=== PATIENT | male | born 1975 ===

== ENCOUNTER 2017-03-24 18:36 | Emergency (ER) | payer OTHER ==
[2017-03-24 18:44] VITALS: BP 151/98; PULSE 72; RESP 18; TEMP 98.3; O2SAT 100
[2017-03-24] MEDS ORDERED: Tetanus/Diphtheria Toxoids 0.5 ml Syringe IM ONE ×2 (19:25→19:40)
--- NOTE | 2017-03-24 19:26 | C.PDOC ---
History Of Present Illness 41 yr old male presents to the ER for evaluation of left lower leg laceration sustained early today while at work. Patient reports a piece of wood fell and punctured his leg. States he has been walking without difficulty. Denies deformity, weakness, sensory or vascular deficits to injured leg. Ambulate to ED for evaluation, not in any apparent distress. Time Seen by Provider: 03/24/17 19:18 Chief Complaint (Nursing): Abnormal Skin Integrity History Per: Patient History/Exam Limitations: no limitations Onset/Duration Of Symptoms: Sudden Onset Past Medical History Reviewed: Historical Data, Nursing Documentation, Vital Signs Vital Signs: Last Vital Signs Temp 98.3 F 03/24/17 18:43 Pulse 72 03/24/17 18:43 Resp 18 03/24/17 18:43 BP 151/98 H 03/24/17 18:43 Pulse Ox 100 03/24/17 20:01 - Medical History PMH: HTN Family History: States: No Known Family Hx - Social History Hx Alcohol Use: No Hx Substance Use: No - Immunization History Hx Tetanus Toxoid Vaccination: No Hx Influenza Vaccination: No Hx Pneumococcal Vaccination: No Review Of Systems Except As Marked, All Systems Reviewed And Found Negative. Musculoskeletal: Negative for: Leg Pain Skin: Positive for: Other ((+) Laceration to the left lower leg) Neurological: Negative for: Weakness, Numbness Physical Exam - Physical Exam Appears: Well, Non-toxic, No Acute Distress Skin: Normal Color, Warm, Other ((+)Left lower leg laceration over mid fibula 2c , length, through deromis, mild bloody oozing noted. No wound FB. NO edema or erythema, no skin contusion.) Extremity: Normal ROM (LLE), No Tenderness, No Calf Tenderness, Capillary Refill (less than 2sec to left foot), No Deformity, No Swelling Neurological/Psych: Oriented x3, Normal Speech, Normal Motor, Normal Sensation, Normal Reflexes ED Course And Treatment O2 Sat by Pulse Oximetry: 100 (RA) Pulse Ox Interpretation: Normal Progress Note: On re-evaluation, pt is afebrile, hemodynamicaly stable. Non- toxic. Ambulatory in ED with stable gait. Left leg: laceration repaired without difficulty. FAROM, no neurovascular deficits. tetnis given. Pt advised on wound care. return to ED if any sign of infection. Laceration - Laceration Repair Left lower leg Wound Length (In cm): 2 Description Of Wound: Linear Wound Cleansed With: Betadine Anesthesia: Lidocaine 2% Wound Examination: Irrigated With Saline, No FB With Wound Exploration, No Tendon Injury With Wound Exploration Wound Closure: Dalila (#3), Suture (#2) Suture Technique And Material Used: Interrupted, Chromic (3-0) Wound Complexity: Intermediate Medical Decision Making Medical Decision Making: PLAN: * Tetanus IM Disposition Counseled Patient/Family Regarding: Diagnosis, Need For Followup - Disposition Referrals: [facility] [Outside] Disposition: HOME/ ROUTINE Disposition Time: 19:26 Condition: STABLE Additional Instructions: LIght duty to injured leg Keep wound clean, dry Follow up with PMD in 2 days for wound check as need Dalila removal in 10 days return to ED at any time if any sign of infection Instructions: Care For Your Stitches (ED), Laceration (ED) Forms: [facility] [facility] ([place]), Work Excuse - Clinical Impression Clinical Impression: Laceration - 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 - Scribe Statement The provider has reviewed the documentation as recorded by the Scribe Sara Galloway All medical record entries made by the Scribe were at my direction and personally dictated by me. I have reviewed the chart and agree that the record accurately reflects my personal performance of the history, physical exam, medical decision making, and the department course for this patient. I have also personally directed, reviewed, and agree with the discharge instructions and disposition.
== END 2017-03-24 19:49 | disposition home or self-care (01) ==
LOC: C.ER 18:36
DX: S81.812A Laceration without foreign body, left lower leg, initial encounter (principal); W22.8XXA Striking against or struck by other objects, initial encounter; Y93.89 Activity, other specified; Y92.69 Other specified industrial and construction area as the place of occurrence of the external cause; Y99.0 Civilian activity done for income or pay